=== PATIENT | female | born 1965 | race Caucasian/White ===

== ENCOUNTER 2018-01-28 04:05 | Emergency (ER) | payer OTHER ==
[~2018-01-28] VITALS: Ht 165.1 cm; Wt 70.8 kg
[2018-01-28 04:15] VITALS: BP_SYST 132
[2018-01-28] MEDS ORDERED: KETOROLAC TROMETHAMINE 30 MG VIAL IM ONE (04:15)
[2018-01-28] MEDS ORDERED: CYCLOBENZAPRINE HCL 10 MG TABLET (FLEXERIL) PO ONE (04:15)
[2018-01-28 04:48] LABS: BILIRUBIN,URINE NEGATIVE (NEGATIVE); BLOOD, URINE NEGATIVE (NEGATIVE); CLARITY/URINE CLEAR (CLEAR); COLOR,URINE YELLOW (YELLOW); GLUCOSE,URINE NEGATIVE (NEGATIVE); KETONES,URINE 1+ (NEGATIVE); LEUKOCYTE ESTERASE ,URINE TRACE (NEGATIVE); NITRITE, URINE POSITIVE (NEGATIVE); PH,URINE 6.5 (5.0-8.0); PROTEIN URINE NEGATIVE (NEGATIVE); UROBILINOGEN,URINE 0.2 (0.2-1.0)
[2018-01-28 05:10] LABS: BACTERIA,URINE MANY /HPF (None Seen); MUCUS,URINE None Seen /LPF (None Seen); RBC,URINE 0-3 /HPF (0-3)
[2018-01-28] MEDS ORDERED: CIPROFLOXACIN HCL 500 MG TABLET PO ONE (05:15)
[2018-01-28] MEDS ORDERED: HYDROcodone/ACETAMIN 5-325 MG TAB (NORCO/ VICODIN) PO ONE (05:30)
[2018-01-28 05:55] VITALS: BP_SYST 131
== END 2018-01-28 05:55 | disposition home or self-care (01) ==
LOC: SED 04:05
DX: S39.012A Strain of muscle, fascia and tendon of lower back, initial encounter (principal); N39.0 Urinary tract infection, site not specified; E11.9 Type 2 diabetes mellitus without complications; X58.XXXA Exposure to other specified factors, initial encounter; Y93.89 Activity, other specified; Y92.89 Other specified places as the place of occurrence of the external cause; Y99.8 Other external cause status
CPT/HCPCS: 74176; 81000; 87086; 96372; 99285; J1885

== ENCOUNTER 2020-08-05 17:47 | Emergency (ER) | payer BC, OTHER ==
[~2020-08-05] VITALS: Ht 165.1 cm; Wt 76.2 kg
[2020-08-05 17:50] VITALS: BP_SYST 146
[2020-08-05] MEDS ORDERED: LIDOCAINE 1% 10 MG/ML, 20 ML MDV INJ ONE (19:15)
[2020-08-05] MEDS ORDERED: BACITRACIN 1 GM OINT TP ONE ×2 (19:45→19:55)
[2020-08-05 20:13] VITALS: BP_SYST 133
== END 2020-08-05 20:13 | disposition home or self-care (01) ==
LOC: SED 17:47
DX: S90.122A Contusion of left lesser toe(s) without damage to nail, initial encounter (principal); S30.0XXA Contusion of lower back and pelvis, initial encounter; E11.9 Type 2 diabetes mellitus without complications; Z90.710 Acquired absence of both cervix and uterus; V19.9XXA Pedal cyclist (driver) (passenger) injured in unspecified traffic accident, initial encounter; Y93.89 Activity, other specified; Y92.89 Other specified places as the place of occurrence of the external cause; Y99.8 Other external cause status
CPT/HCPCS: 11730; 73660; 74176; 99284; J2001